=== PATIENT | male | born 1960 ===

== ENCOUNTER → 2019-05-24 | Emergency (ER) | payer OTHER ==
[~2019-05-24] VITALS: Ht 175.3 cm; Wt 136.1 kg
[~2019-05-24] MED LIST: BACTRIM 400-801 EACH PO; LOTRISONE CREAM45 GM TOP; PENTOXIFYLLINE400 MG PO; TIVORBEX40 MG PO
== END | disposition home or self-care (01) ==
LOC: ER 06:12
DX: B35.3 Tinea pedis (principal); I73.9 Peripheral vascular disease, unspecified